=== PATIENT | male | born 1980 | race Caucasian/White ===

== ENCOUNTER 2020-08-23 09:17 | Emergency (ER) | payer BC ==
[2020-08-23] MEDS ORDERED: Sodium Chloride 0.9% 10 ML Syringe FLUSH PRN (09:56)
[2020-08-23] MEDS ORDERED: Sodium Chloride 0.9% 1,000 ML IV SCH (10:00)
--- NOTE | 2020-08-23 11:29 | EDM.PDOC ---
ED HPI GENERAL MEDICAL PROBLEM - General Chief Complaint: General Stated Complaint: ABNORMAL BLOOD WORK Time Seen by Provider: 08/23/20 09:31 Source of Information: Reports: Patient, RN Notes Reviewed - History of Present Illness INITIAL COMMENTS - FREE TEXT/NARRATIVE: 40 yr old male did an intense workout this past Wednesday. He developed a lot of anticipated muscle soreness that evening and the next day. His urine turned dark brown 2 days ago, went to clinic yesterday, notified this AM that his cpk was 42,000, advised to come here to the ED. He did get 2 liters of NS at the clinic yesterday. He has been drinking a lot of oral fluids today and the last few days. His urine is much clinical trial head brown this AM. He did have repeat labs drawn at [facility] this AM. No abd or back pain today. No fever, chills, nausea or vomiting. - Related Data Allergies Allergy/AdvReac Type Severity Reaction Status Date / Time No Known Allergies Allergy Verified 08/23/20 09:35 Home Meds: Home Meds ClonazePAM [KlonoPIN] 1 mg PO DAILY 08/23/20 [History] Past Medical History - Past Surgical History HEENT Surgical History: Reports: Tonsillectomy Social & Family History - Tobacco Use Tobacco Use Status *Q: Never Tobacco User ED ROS GENERAL - Review of Systems Review Of Systems: See Below Constitutional: Denies: Fever, Chills HEENT: Reports: No Symptoms Respiratory: Denies: Shortness of Breath Cardiovascular: Denies: Chest Pain GI/Abdominal: Denies: Abdominal Pain, Nausea, Vomiting : Reports: Other (brown urine the last 2 days, better today) Musculoskeletal: Reports: Other (muscle achiness chest, upper and lower extrem, better today) Skin: Denies: Rash Neurological: Denies: Dizziness ED EXAM, GENERAL - Physical Exam Exam: See Below General Appearance: Alert Head: Atraumatic Neck: Supple Respiratory/Chest: No Respiratory Distress, Lungs Clear, Normal Breath Sounds Cardiovascular: Regular Rate, Rhythm GI/Abdominal: Soft, Non-Tender Back Exam: No: CVA Tenderness (L), CVA Tenderness (R) Extremities: No: Pedal Edema, Leg Pain, Increased Warmth Neurological: Alert, Oriented, No Motor/Sensory Deficits Skin Exam: Warm, Dry, Normal Color, No Rash Course - Vital Signs Last Recorded V/S: Last Vital Signs Temp 97.2 F 08/23/20 12:15 Pulse 78 08/23/20 12:15 Resp 16 08/23/20 12:15 BP 123/77 08/23/20 12:15 Pulse Ox 96 08/23/20 12:15 - Orders/Labs/Meds Orders: Active Orders 24 hr Category Date Time Status Peripheral IV Insertion Adult [OM.PC] Stat Oth 08/23/20 09:56 Ordered Meds: Medications Discontinued Medications Generic Name Dose Route Start Last Admin Trade Name Freq PRN Reason Stop Dose Admin Sodium Chloride 1,000 mls @ 999 mls/hr 08/23/20 10:00 08/23/20 10:23 Normal Saline IV 999 mls/hr ONETIME PETER Administration Sodium Chloride 10 ml 08/23/20 09:56 08/23/20 10:23 Sodium Chloride 0.9% 10 Ml Syringe FLUSH 10 ml ASDIRECTED PRN Administration Keep Vein Open - Re-Assessments/Exams Free Text/Narrative Re-Assessment/Exam: 08/23/20 11:30 Pt is well into recovery in times of sx and time duration with this now 4 days from his intense workout this past Wednesday. Labs from [facility] this AM reviewed. BUN 9, creat 8.6, anion gap 13., Co2 27. AST, ALT elevated. CPK pending. He has been drinking a lot of fluids today as well as the last 2 days. Infusing 1 further liter NS. noted he had 2 liters of fluid at the clinic yesterday. He has provided a urine and that is light brown. All labs from clinic reviewed. He has been drinking water and powerade while here in the ED. I don't see that he needs more IV fluid at this time. He needs to continue strong oral fluid intake. Have explained that recovery is a process of time and he will continue to get better with rest, time and continued adequate hydration. Discharge instr. as documented. Departure - Departure Time of Disposition: 11:33 Disposition: Home, Self-Care 01 Condition: Fair Clinical Impression: Exercise myoglobinuria - Discharge Information Instructions: Myoglobin Test Referrals: Fransisco Molina MD [Primary Care Provider] - Forms: ED Department Discharge Additional Instructions: No exertional activity for the next 3 days. You may return to work Wednesday, no restrictions. Continue to drink a lot of fluids today and the remainder of the weekend. Return to ED as needed if symptoms worsening in any way. Sepsis Event Note (ED) - Evaluation Sepsis Screening Result: No Definite Risk - My Orders Last 24 Hours: My Active Orders 08/23/20 09:56 Peripheral IV Insertion Adult [OM.PC] Stat - Assessment/Plan Last 24 Hours: My Active Orders 08/23/20 09:56 Peripheral IV Insertion Adult [OM.PC] Stat
== END 2020-08-23 12:18 | disposition home or self-care (01) ==
LOC: JD.ED 09:17
DX: R82.1 Myoglobinuria (principal)
CPT/HCPCS: 99283; J7030